=== PATIENT | male | born 1945 | race Caucasian/White ===

== ENCOUNTER 2025-05-07 17:50 | Emergency (ER) | payer BC ==
[~2025-05-07] VITALS: Ht 167.6 cm; Wt 87.5 kg
[2025-05-07] MEDS: IV NS 0.9% 500 ML BAG IV ONE (18:39)
[2025-05-07] MEDS ORDERED: ACETAMINOPHEN ES 500 MG TABLET ONE ×2 (18:39→21:15)
[2025-05-07] MEDS: ACETAMINOPHEN ES 500 MG TABLET PO ONE ×2 (18:40→21:16)
[2025-05-07 18:42] LABS: PLATELET COUNT (AUTO) 167 K/uL (150-450); RED BLOOD CELL COUNT(AUTO) 5.53 MIL/uL (4.5-6.0); RED CELL DISTRIBUTION WIDTH 15.1 % (11.5-15.0); WHITE BLOOD COUNT (AUTO) 6.5 K/uL (4.3-11.0)
[2025-05-07 18:51] LABS: CALCIUM, SERUM 8.5 mg/dL (8.5-10.1); CREATININE 1.0 mg/dL (0.6-1.3); SODIUM SERUM 139 mmol/L (136-145); UREA NITROGEN, BLOOD 17 mg/dL (7-18)
[2025-05-07 18:54] LABS: INR 1.0 (0.91-1.10)
[2025-05-07] MEDS ORDERED: IOHEXOL-300 100 ML VIAL IV ONE (19:15)
[2025-05-07] MEDS ORDERED: ONDANSETRON HCL/PF 4 MG/2 ML VIAL ONE (20:51)
[2025-05-07] MEDS ORDERED: MORPHINE SULFATE INJ 4 MG/ML DISP.SYRIN ONE (20:52)
[2025-05-07] MEDS: MORPHINE SULFATE INJ 2 MG/ML DISP.SYRIN IV ONE (20:58)
[2025-05-07] MEDS: ONDANSETRON HCL/PF 4 MG/2 ML VIAL IVP ONE (20:58)
[2025-05-07 22:15] VITALS: BP 165/79; TEMP 98.3; O2SAT 99
== END 2025-05-07 22:15 | disposition home or self-care (01) ==
LOC: ER 18:02
DX: S20.219A Contusion of unspecified front wall of thorax, initial encounter (principal); S09.90XA Unspecified injury of head, initial encounter; I10 Essential (primary) hypertension; Z88.1 Allergy status to other antibiotic agents; V89.2XXA Person injured in unspecified motor-vehicle accident, traffic, initial encounter; Y93.89 Activity, other specified; Y92.410 Unspecified street and highway as the place of occurrence of the external cause; Y99.8 Other external cause status
CPT/HCPCS: 99285; 71260; 93005; 70450; 74177; 85025; 80048; 36415; 85730; J2405; J7040; Q9967; J2270